=== PATIENT | male | born 1975 | race Caucasian/White ===

== ENCOUNTER 2018-08-27 12:54 | Emergency (ER) | payer OTHER ==
[2018-08-27 12:57] VITALS: BMI 29.4
[2018-08-27 12:58] VITALS: RESP 16
[2018-08-27] MEDS ORDERED: Tdap Vaccine 0.5 ml Vial (10-64 yrs) IM ONE ×2 (13:08→13:22)
--- NOTE | 2018-08-27 13:11 | ED PDOC ---
HPI: Skin/Bite Injury Time Seen by Provider: 08/27/18 12:59 Chief Complaint (Nursing): Finger,Hand,&Wrist Chief Complaint (Provider): finger,hand,&wrist History Per: Patient History/Exam Limitations: no limitations Onset/Duration Of Symptoms: Days (2x) Current Symptoms Are (Timing): Still Present Location Of Injury: Right: Hand (laceration) Quality Of Symptoms: Painful, Swollen Severity: Moderate Additional Complaint(s): 43 year old male with no pertinent past medical history presents to the ED for an evaluation of a right hand laceration he sustained yesterday. Patient states that yesterday morning a bin accidentally fell onto his right hand causing a laceration. Patient noted swelling to the area today, and was advised by his to come to the ED. Patient states that the pain is minimal right now, and denies taking mediations at home for pain. Patient denies having numbness, tin gling, foreign body sensation, fevers, chills, or a history of diabetes. Tetanus is not up to date. PMD: None provided Past Medical History Reviewed: Historical Data, Nursing Documentation, Vital Signs Vital Signs: Last Vital Signs Temp 97.7 F 08/27/18 12:57 Pulse 58 L 08/27/18 12:57 Resp 16 08/27/18 12:57 BP 126/80 08/27/18 12:57 Pulse Ox 98 08/27/18 12:57 RADHA Report Viewed: Yes - Medical History PMH: No Chronic Diseases Denies: Diabetes - Family History Family History: States: No Known Family Hx - Social History Current smoker - smoking cessation education provided: No Alcohol: None Drugs: Denies - Immunization History Hx Tetanus Toxoid Vaccination: No - Home Medications Home Medications: Ambulatory Orders Medication Instructions Recorded Ibuprofen [Motrin Tab] 800 mg PO Q8 #20 tab 05/02/15 Oxycodone HCl/Acetaminophen 1 tab PO Q4 #15 tab 05/02/15 [Percocet 325 mg-5 mg] Clindamycin [Cleocin] 300 mg PO TID #20 cap 08/27/18 - Allergies Allergies/Adverse Reactions: Allergies Allergy/AdvReac Type Severity Reaction Status Date / Time No Known Allergies Allergy Verified 05/02/15 12:01 Review of Systems ROS Statement: Except As Marked, All Systems Reviewed And Found Negative Constitutional: Negative for: Fever, Chills Musculoskeletal: Positive for: Other (right hand laceration with swelling and minimal pain. (-) foreign body sensation, (-) numbness, (-) tingling.) Physical Exam - Reviewed Nursing Documentation Reviewed: Yes Vital Signs Reviewed: Yes - Physical Exam Appears: Positive for: Well, Non-toxic, No Acute Distress Head Exam: Positive for: ATRAUMATIC, NORMOCEPHALIC Skin: Positive for: Normal Color, Warm, Dry Pulses-Radial (L): 2+ Pulses-Radial (R): 2+ Extremity: Positive for: Other (right dorsum of hand with 1 cm linear very superficial laceration with minimal surrounding erythema and swelling. (-) tenderness. Full ROM actively of all digits. Capillary refill <2 seconds) Neurological/Psych: Positive for: Awake, Alert, Oriented (3x) - ECG O2 Sat by Pulse Oximetry: 98 (RA) Pulse Ox Interpretation: Normal Medical Decision Making Medical Decision Makin:59 Initial impression: 43 year old male with a right hand laceration Initial plan: * Xray hand right 3 views * adacel 10-64 yrs 0.5 ml IM * cleocin 300 mg PO * Wound irrigated and cleansed then dressed by RN ScribeAttestation: Documented byRadha Taylor, acting as a scribe for Fredis Mejia Provider ScribeAttestation: All medical record entries made by the Scribe were at my direction and personally dictated by me. I have reviewed the chart and agree that the record accurately reflects my personal performance of the history, physical exam, medical decision making, and the department course for this patient. I have also personally directed, reviewed, and agree with the discharge instructions and disposition. Disposition - Clinical Impression Clinical Impression: Cellulitis, Hand injury - Patient ED Disposition Is Patient to be Admitted: No - Disposition Referrals: [facility] [Outside] [facility] [Outside] Disposition: Routine/Home Disposition Time: 13:27 Condition: STABLE Additional Instructions: FOLLOW UP WITH YOUR DOCTOR FOR FURTHER EVALUATION RETURN TO ED IMMEDIATELY IF SYMPTOMS WORSEN Prescriptions: Clindamycin [Cleocin] 300 mg PO TID #20 cap Instructions: Cellulitis (Skin Infection), Adult (DC) Forms: [employer] (Indian) Print Language: AMHARIC
[2018-08-27] MEDS ORDERED: Bacitracin 500 Units/gm Oint Foilpak UD ONE (13:27)
--- NOTE | 2018-08-27 13:49 | RAD ---
PROCEDURE: Right Hand Radiographs. HISTORY: trauma COMPARISON: None. TECHNIQUE: 3 views obtained. FINDINGS: BONES: No acute fracture or destructive bony lesion identified. JOINTS: Normal. No osteoarthritic changes. SOFT TISSUES: Normal. OTHER FINDINGS: None. IMPRESSION: Unremarkable right hand radiographs.
[2018-08-27 15:36] VITALS: BP 121/73; PULSE 62; TEMP 97.9
[2018-08-27 16:35] VITALS: O2SAT 98
== END 2018-08-27 13:39 | disposition home or self-care (01) ==
LOC: H.ER 12:54
DX: S61.411A Laceration without foreign body of right hand, initial encounter (principal); W19.XXXA Unspecified fall, initial encounter; L03.113 Cellulitis of right upper limb; Z23 Encounter for immunization